=== PATIENT | female | born 1985 | race African-American/Black ===

== ENCOUNTER → 2023-05-19 10:51 | Outpatient (BNVA) | payer OTHER, SELFPAY | PROVIDERS: PCP Physician Assistant Medical; Visit Provider Advanced Practice Midwife ==

== ENCOUNTER 2023-10-04 14:53 | Outpatient (REF) | payer OTHER, SELFPAY ==
[2023-10-07 09:29] LABS: HPV mRNA E6/E7 rflx Not Detected (Not Detected)
== END 2023-10-04 14:54 | disposition home or self-care (01) ==
LOC: HO.LNP 14:53
PROVIDERS: PCP Physician Assistant Medical; Visit Provider Advanced Practice Midwife
DX: Z01.419 Encounter for gynecological examination (general) (routine) without abnormal findings (principal); Z11.51 Encounter for screening for human papillomavirus (HPV)
CPT/HCPCS: 87624; 88142

== ENCOUNTER 2023-10-04 14:53 | Outpatient (AMB) | payer OTHER, SELFPAY ==
--- OUTSIDE RECORDS SUMMARY | 2023-10-04 14:55 | XMS_ITS | Continuity of Care Document ---
Author Name Unknown Organization [facility] ter Address [address] [place] [address]- Care Team Providers Care Cutter Aluminum Sheet Name Role Phone Hasmukh BARRIOS, Lavell Aleman Primary Care Physician [place] [facility] [place]28[place]23 - 05/28/[address] [address]- Encounter Diagnosis Throat discomfort(Final) - 05/28/23 Discharge Disposition: A-D/C Home Attending Physician: Shara Soliz MD Admitting Physician: Shara Soliz MD Referring Physician: Not on Staff, Referring MD Allergies, Adverse Reactions, Alerts No Known Allergies Immunizations Given and Recorded Vaccine Date Status Refusal Reason Typhoid Vaccine, Inactivated 09/11/19 Given Hepatitis A Adult Vaccine 09/11/19 Given Hepatitis A Adult Vaccine 1 02/17/09 Given tetanus/diphtheria/pertussis, acel(Tdap) 01/22/11 Given Typhim (oldterm) 02/17/09 Given Meningococcal Polysaccharide Vaccine 2 02/17/09 Gi ollie Poliovirus Vaccine, Inactivated 02/17/09 Given 1Admin Note: hep A #1 2Admin Note: menomune Medications Azithromycin 3 Day Dose Pack 500 mg oral tablet 1 tablet = 500 mg, By Mouth, Daily, for severe diarrhea with travel., # 3 tablet, 0 Refills, Maintenance, 09/11/19 14:25:00 EST, Tablet, [id number] Start Date: 09/11/19 Status: Ordered Ferrous Sulfate EC Refills 0, Maintenance, 09/11/19 14:24:00 EST Start Date: 09/11/19 Status: Ordered Malarone 250 mg-100 mg oral tablet 1 tablet, By Mouth, Daily, must be taken with food. Start 1 day before entering malarious area and continue for 7 days after return, # 110 tablet, 0 Refills, Maintenance, 09/11/19 14:24:00 EST, [id number], 1 tablet By Mouth Daily,Instr:must b... Start Date: 09/11/19 Status: Ordered Vitamin D 59697 iu oral capsule 50,000 International_Units, 1, capsule, By Mouth, Daily, Refills 0, Maintenance, 09/11/19 14:24:00 EST Start Date: 09/11/19 Status: Ordered Results Radiology Reports * Exam Date Time Procedure Performing Provider Status 05/28/23 3:[address] Soft Tissue Neck W/ Contrast Delmis Rucker; Auth (Verified) Notes: (CT Soft Tissue Neck W/ Contrast) Reason For Exam: ? Fb throat;Other: RESULT: CT Soft Tissue Neck W/ Contrast CT Soft Tissue Neck W/ Contrast INDICATION/CLINICAL QUESTION: 38-year-old female with sore throat. Managing own secretions. No acute distress noted.; Reason: Other:; ? Feb throat; TECHNIQUE: Spiral CT neck with IV contrast formatted in 3 planes. 100 cc of Omnipaque 300 was administered intravenously. Weight-based protocol using automatic tube modulation was used to optimize exposure parameters. CTDIvol Body: 8.40 mGy, DLP Body: 242 mGy*cm. COMPARISON: None. FINDINGS: Loss Prevention Auditor View Findings, Lines and Tubes: None. Intracranial structures: Visualized portions are unremarkable. Orbits: Visualized portions are unremarkable. Paranasal sinuses and mastoids: Visualized portions are clear. Mucosal surfaces: Mucosal surfaces appear normal and symmetric, including the pharynx, larynx, and visualized portions of the upper trachea and esophagus. Moderate opaque foreign body. Superficial and deep neck spaces: No mass, fluid collection, or inflammatory change. Cervical lymph nodes: No enlarged lymph nodes. Increased number of normal-sized lymph nodes probably reactive. Salivary glands: The parotid glands and submandibular glands are normal. Thyroid gland: Normal CT appearance Vascular structures: Unremarkable. Upper chest: The upper lungs are clear. Azygous fissure noted. The upper mediastinum is unremarkable. Bones and teeth: No acute abnormalities. IMPRESSION: No evidence of radiopaque foreign body. No adenopathy or abscess. Thank you for allowing me to participate in the care of this patient. WSN: [id number] Ordering Physician: Dwight Rahman Dictated By: Gregorio Gomez MD Dictated Date/Time: 05/28/23 4:47 pm Reviewed By: Gregorio Gomez MD Signed By: Gregorio Gomez MD Signed Date/Time: 05/28/23 4:47 pm Transcribed By: COY Transcribed Date/Time: 05/28/23 4:34 pm Vital Signs Most recent to oldest [Reference Range]: 1 2 3 Height 168 cm (05/28/23 5:12 PM) 168 cm (05/28/23 1:21 PM) 168 cm (05/28/23 1:01 PM) Weight 73 kg (05/28/23 5:12 PM) 73 kg (05/28/23 1:21 PM) Oxygen Saturation [94-100 %] 99 % (05/28/23 5:13 PM) 100 % (05/28/23 5:12 PM) 100 % (05/28/23 2:59 PM) Pulse Rate [55-90 bpm] 79 bpm (05/28/23 5:13 PM) 77 bpm (05/28/23 5:12 PM) 74 bpm (05/28/23 2:59 PM) Body Mass Index [18.5-24.99 kg/m2] 25.86 kg/m2 *H* (05/28/23 5:12 PM) Blood Pressure [90-138/55-84 mm Hg] 114/64mm Hg (05/28/23 5:13 PM) 110/71mm Hg (05/28/23 5:12 PM) 103/64mm Hg (05/28/23 2:59 PM) Respiratory Rate [16-30 br/min] 20 br/min (05/28/23 5:13 PM) 16 br/min (05/28/23 5:12 PM) 14 br/min *L* (05/28/23 2:59 PM) Temperature [96.8-100.4 DegF] 98.2 DegF (05/28/23 5:12 PM) 98.2 DegF (05/28/23 1:01 PM) Mode of Delivery (Oxygen) Room air (05/28/23 5:12 PM) Room air (05/28/23 2:59 PM) Room air (05/28/23 1:01 PM) Blood pressure sites Arm, right (05/28/23 5:13 PM) Arm, right (05/28/23 5:12 PM) Arm, left (05/28/23 2:59 PM) Temperature Route Oral (05/28/23 5:12 PM) Oral (05/28/23 1:01 PM) Dry Weight 73 kg (05/28/23 5:12 PM) 73 kg (05/28/23 1:21 PM) 73 kg (05/28/23 1:01 PM) Dry Weight Obtained Via Patient/family s tated (05/28/23 1:01 PM) Patient Care team information Care Team Personnel Name: Hasmukh BARRIOS, Lavell Aleman Position: [facility] Physician - Primary Care Member Role: PCP Address: Address: [address] [place] [address], [address] [place] [address]- Name: Chantal Corrales RN Position: [facility] OB RN Member Role: Primary Care Nurse Name: Thien Dominguez DO Position: [facility] Resident Member Role: ED Attending Physician Address: Address: [address] [place] [id number]- Name: Snehal Li RN Position: [facility] ED RN W/OE and Tasks Member Role: Patient Care Provider Name: Heydi BARRIOS, Shara Elliott Position: [facility] Resident Member Role: Admitting Physician Address: Address: [address] [place] [id number]- Name: Jose Luis Downs Position: [facility] ED TA [facility] Member Role: Line Service Technician Name: Vianca Patterson NP Position: [facility] Associate Professional Member Role: ED Physician [employer] Address: Address: [address] [place] [id number]- Care Team Related Persons Name: KARON VALDOVINOS Name: RANJAN TOMPKINS Address: home [address] [place] [address]
[2023-10-04 14:56] VITALS: BP 124/76; BMI 27.1
--- NOTE | 2023-10-04 14:56 | MHC.OFFVIS ---
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 Doing well with no concerns. She tries to eat healthy, she admits to little exercise due to her depression. Regular monthly menses, happy with her ParaGard inserted 2016. Currently is sexually active. She denies vaginal itching and irritation. STI screening offered; she declines. Denies family history of breast, ovarian or colon cancer. Last pap smear unknown, negative per pt. [facility] Medical History Depression Social History (Updated 10/04/23 @ 15:29 by Joan Michael CNM) Household Members: Spouse and Children Female Reproductive History Menstrual Duration of menses: 6-7 days control method: none Total pregnancies: 4 Full term: 4 Number of Living Children: 4 Review of Systems Const All systems reviewed & are unremarkable except as noted in HPI and below Reports as per HPI Eyes Reports no additional complaints ENT Reports no additional complaints Card Reports no additional complaints Resp Reports no additional complaints GI Reports as per HPI and Reports no additional complaints Reports as per HPI Musc Reports no additional complaints Skin/Breast Reports as per HPI Neuro Reports no additional complaints Psych Reports no additional complaints Endo Reports no additional complaints Tha/Lymph Reports no additional complaints Aller/Immun Reports no additional complaints Physical Exam Vital Signs: Last Vital Signs BP 124/76 10/04/23 14:56 BMI result Body Mass Index 27.1 Const General: cooperative, healthy appearing, no acute distress, well developed and alert Orientation/consciousness: patient oriented x3 HEENT Head: Yes normal to inspection Eyes General: appearance normal, both eyes and all related structures Neck Neck: Yes normal visual inspection Thyroid: Thyroid normal Chest Chest palpation & inspection: normal inspection of the chest and other (no puckering, dimpling, peau de orange, retraction, discharge, masses) Breast/axilla inspection: normal inspection of the breasts Breast/axilla palpation: normal palpation of the breasts Resp Effort & Inspection: normal respiratory effort GI Inspection: Yes normal to inspection Palpation (GI): Soft to palpation Rectal Exam - Female: deferred General: Yes bladder normal to palpation External Female Exam: normal external appearance and normal appearance of the urethra Speculum Exam - Vagina: normal appearance of the vagina, normal palpation and normal vaginal discharge Speculum Exam - Cervix: normal appearance of the cervix, normal palpation and Other cervical findings present (IUD strings normal, bled slightly with pap) Bimanual exam- vagina & uterus: normal bimanual exam, normal palpation, uterine size normal, bladder normal to palpation, normal palpation and non-tender Bimanual Exam- Adnexa, other: no masses Skin General skin exam: no rashes or lesions noted Rashes: no rashes Neuro General: patient oriented x3 Cognition (Neuro): normal cognition Extrem General: Yes normal to inspection Psych Attitude: cooperative Thought process: Normal thought process present Assessment & Plan Assessment & Plan (1) Encounter for well woman exam with routine gynecological exam: Code(s): Z01.419 - Encounter for gynecological examination (general) (routine) without abnormal findings Plan Discussed: Current recommendations for pap smears per ASCCP guidelines. Breast awareness and periodic breast exams. Mammogram after her 39th birthday. Order placed. Maintain a healthy lifestyle including a well balanced diet and routine exercise. Monitor menstrual cycles, report any unscheduled bleeding, bleeding episodes <21 days apart or heavy/prolonged menstrual bleeding. Call the office for a follow up for any concerns. All of her questions and concerns were addressed to the best of my ability. RTO in one year for annual obstetrics gynecology physician examination. This note is constructed using voice recognition software. While every effort has been made to ensure accuracy, pediatric orthodontist errors may have been included. Orders: Orders Pap Smear Today Z12.4 - Encounter for screening for malignant neoplasm of cervix MM tomosynthesis screening BI 05/20/24 Z12.31 - Encounter for screening mammogram for malignant neoplasm of breast Coding Level of Care Code New Pt Prev Care 18-39yr([address] Diagnoses Encounter for well woman exam with routine gynecological exam Z01.419
== END 2023-10-04 15:37 | disposition home or self-care (01) ==
LOC: HO.HWS 14:53
PROVIDERS: PCP Physician Assistant Medical; Visit Provider Advanced Practice Midwife
DX: Z01.419 Encounter for gynecological examination (general) (routine) without abnormal findings (principal)
CPT/HCPCS: 99385

== ENCOUNTER 2024-01-26 15:45 | Outpatient (AMB) | payer OTHER, SELFPAY ==
[2024-01-26 15:48] VITALS: BP 120/82; BMI 29.9
--- NOTE | 2024-01-26 15:48 | MHC.OFFVIS ---
Vital Signs 01/26/24 15:48 Height 5 ft 6 in Weight 185 lb BMI 29.9 BP 120/82 Intake Visit Reasons: menses concerns Business Account Executive Required: No Information Interpreted: non-clinical & clinical Level Vial Sealer: Level Vial Sealer Present Accompanied by: Self / Same As Patient Allergies No Known Allergies Allergy (Verified 01/26/24 15:54) Is last menstrual period known: Yes Last menstrual period: 01/22/24 HPI Comments Details: Patient is currently a ParaGard user she does have regular cycles monthly lasting 6 days. [place]/ areas that prohibit women to enter if they are bleeding. She is requesting control so that she does not get her period while traveling on February 24 for a month out of the country. She denies any contraindications to control such as: migraines with aura, history of DVT or pulmonary emboli, high blood pressure, liver disease, thrombolic disorders, Lupus, +ALEXUS, breast cancer, or smoking. She reports using control pills in the past for same reason and had some breakthrough bleeding in the 1st month and stopped. [facility] Medical History Depression Social History (Updated 10/04/23 @ 15:29 by Joan Michael CNM) Household Members: Spouse and Children Female Reproductive History Menstrual Date of last menstrual period: 01/22/24 Review of Systems Const All systems reviewed & are unremarkable except as noted in HPI and below Endo Reports no additional complaints Physical Exam Const General: cooperative, healthy appearing and no acute distress Psych Appearance: well kempt Attitude: cooperative Thought process: Normal thought process present Assessment & Plan Assessment & Plan (1) BCP ( control pills) initiation: Code(s): Z30.011 - Encounter for initial prescription of contraceptive pills Plan Control Counseling Use and side effects of control: Instructed to start the pill within the first 5 days of the menstrual period. Recommended to take pill at same time every day and with food to prevent stomach upset. Switch to bedtime intake with food if still experiencing nausea. Consider setting the cell phone for alerts as a reminder to take the pill at the same time. Take the dose as soon as possible, and take your regular pill on time. If you miss the pill often, then consider another option of control. Instructed patient to take for at least 3 months the body is acclimated to it. Most side effects go away with time in the first three months. There is no guarantee she does not have breakthrough bleeding within the 1st pack which is an extended pack, this is a frequent occurrence in initiating control. Mirena booklet given, encouraged to read and think about changing her IUD to a Mirena to not have menstrual bleeding therefore eliminate the need to go intermittently on and off OCPs while traveling. Keep mammogram appointment as scheduled in April. Warnings: go to ED if and loss of vision/blindness, severe headache, chest pain or difficulty breathing, severe abdominal pain, or any pain or swelling in an extremity. Advised during her travel on flight or car to get up and stretch and exercise to move her extremities to prevent prolonged episodes of sitting to prevent any risk for development of deep vein thrombosis. Exercises could also include stretches, stomping, ambulating, ankle rolls. Return in 3 months for pill check, or sooner if any concerns. Patient may opt to just discontinue after her trip in February and will not need a pill check at that time. All of her questions and concerns were addressed to the best of my ability and shared decision making. She is agreeable to plan of care. Medications: New levonorgestrel-ethinyl estrad 0.15 mg-30 mcg (91) ([place]) 1 tab PO DAILY 91 ea 0RF Coding Level of Care Code Est Pt Level 3 ([address]) Diagnoses BCP ( control pills) initiation Z30.011
== END 2024-01-26 16:14 | disposition home or self-care (01) ==
LOC: HO.HWS 15:45
PROVIDERS: PCP Physician Assistant Medical; Visit Provider Advanced Practice Midwife
DX: Z30.011 Encounter for initial prescription of contraceptive pills (principal)
CPT/HCPCS: 99213

== ENCOUNTER → 2024-01-26 15:45 | Outpatient (BNVA) | payer OTHER, SELFPAY | PROVIDERS: PCP Physician Assistant Medical; Visit Provider Advanced Practice Midwife ==

== ENCOUNTER 2024-06-11 13:33 | Outpatient (REF) | payer OTHER, SELFPAY ==
--- NOTE | ~2024-06-11 | MM_ITS ---
EXAMINATION: MM SCREENING DIGITAL BREAST TOMOSYNTHESIS, BILATERAL CLINICAL INFORMATION: Screening. Asymptomatic. COMPARISON: Mammography: Comparison is made with available priors TECHNIQUE: Digital breast mammography with tomosynthesis is performed in both the craniocaudal and mediolateral oblique views along with computer-aided detection (CAD). FINDINGS: There are scattered areas of fibroglandular density (ACR BI-RADS breast composition Category b). There are no significant masses, abnormal calcifications, or other abnormalities. MM/MM tomosynthesis screening BI IMPRESSION: No mammographic evidence of malignancy. ASSESSMENT: BI-RADS BI-RADS 1 - Negative RECOMMENDATION: Routine annual mammography screening. 1 year F/U This examination should not preclude the clinical evaluation of a suspicious palpable abnormality. This patient's information was entered into a reminder system with a target due date for their next mammogram. Electronically signed by: Rosemary Keith DO 06/25/2024 10:31 AM EDT
== END 2024-06-11 13:34 | disposition home or self-care (01) ==
LOC: HO.MAMMO 13:33
PROVIDERS: PCP Internal Medicine; Visit Provider Advanced Practice Midwife
DX: Z12.31 Encounter for screening mammogram for malignant neoplasm of breast (principal)
CPT/HCPCS: 77063; 77067

== ENCOUNTER → 2024-06-11 13:45 | Outpatient (BNV) | payer OTHER, SELFPAY | PROVIDERS: PCP Internal Medicine; Visit Provider Internal Medicine | DX: Z12.31 Encounter for screening mammogram for malignant neoplasm of breast (principal) | CPT/HCPCS: 77063; 77067 ==

== ENCOUNTER 2025-06-18 10:03 | Outpatient (AMB) | payer OTHER, SELFPAY ==
--- NOTE | 2025-06-18 10:09 | A.OFFVIS_ITS ---
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 Resource Recovery Specialist concerns: none. Regular monthly menses. ParaGard inserted in 2016. Currently is sexually active. She denies vaginal itching or irritation. STI screening offered; she declines. She tries to eat healthy and stays active with exercise-walking. Denies family history of breast, ovarian or colon cancer. Last pap smear 2023, negative. Mammogram: 2023. [facility] Medical History (Updated 06/18/25 @ 10:35 by Joan Michael CNM) IUD (intrauterine device) in place Depression Social History Household Members: Spouse and Children Female Reproductive History Menstrual Duration of menses: 3-5 days Date of last menstrual period: 06/09/25 control method: copper IUCD (Paraguard ) Total pregnancies: 4 Full term: 4 Number of Living Children: 4 Date of last pap smear: 10/04/23 (negativepap smear, negative hpv ) Date of Mammogram: 06/11/24 (bi rad 1) Review of Systems Const All systems reviewed & are unremarkable except as noted in HPI and below Reports as per HPI Eyes Reports no additional complaints ENT Reports no additional complaints Card Reports no additional complaints Resp Reports no additional complaints GI Reports as per HPI and Reports no additional complaints Reports as per HPI Musc Reports no additional complaints Skin/Breast Reports as per HPI Neuro Reports no additional complaints Psych Reports no additional complaints Endo Reports no additional complaints Tha/Lymph Reports no additional complaints Aller/Immun Reports no additional complaints Physical Exam Const General: cooperative, healthy appearing, no acute distress, well developed and alert Orientation/consciousness: patient oriented x3 HEENT Head: Yes normal to inspection Eyes General: appearance normal, both eyes and all related structures Neck Neck: Yes normal visual inspection Thyroid: Thyroid normal Chest Chest palpation & inspection: normal inspection of the chest and other (no puckering, dimpling, peau de orange, retraction, discharge, masses) Breast/axilla inspection: normal inspection of the breasts Breast/axilla palpation: normal palpation of the breasts Resp Effort & Inspection: normal respiratory effort GI Inspection: Yes normal to inspection Palpation (GI): Soft to palpation Rectal Exam - Female: deferred General: Yes bladder normal to palpation External Female Exam: normal external appearance and normal appearance of the urethra Speculum Exam - Vagina: normal appearance of the vagina, normal palpation and normal vaginal discharge Speculum Exam - Cervix: normal palpation and Other cervical findings present (IUD strings at the os) Bimanual exam- vagina & uterus: normal bimanual exam, normal palpation, uterine size normal, bladder normal to palpation, normal palpation and non-tender Bimanual Exam- Adnexa, other: no masses Skin General skin exam: no rashes or lesions noted Rashes: no rashes Neuro General: patient oriented x3 Cognition (Neuro): normal cognition Extrem General: Yes normal to inspection Psych Attitude: cooperative Thought process: Normal thought process present Assessment & Plan Assessment & Plan (1) Encounter for well woman exam with routine gynecological exam: Code(s): Z01.419 - Encounter for gynecological examination (general) (routine) without abnormal findings Category: Medical Plan Discussed: Current recommendations for pap smears per ASCCP guidelines. Breast awareness and periodic breast exams. Mammogram yearly. Maintain a healthy lifestyle including a well balanced diet and routine exercise. Reviewed when IUD we will need to be exchange at 10 years. Patient verbalizes understanding and agrees to the plan of care. She was given opportunity to ask questions and all questions were answered to the best of my ability. RTO in one year for annual traveling repair accountant examination. This note is constructed using voice recognition software. While every effort has been made to ensure accuracy, derrick boat leverman errors may have been included. Orders: Orders MM tomosynthesis screening BI Today Z12.31 - Encounter for screening mammogram for malignant neoplasm of breast Coding Level of Care Code Est Pt Prev Care 40-64y([address]) Diagnoses Encounter for well woman exam with routine gynecological exam Z01.419
[2025-06-18 10:18] VITALS: BP 110/68; BMI 30.7
--- OUTSIDE RECORDS SUMMARY | 2025-06-18 12:18 | XMS_ITS | Clinical Summary ---
Author Organization [facility] Address [address] [place] [address] Care Team Providers Care Emotional Support Teacher Name Role Phone Jihan Suarez [facility] Primary Care Provider [phone] Source Comments PLEASE NOTE, if this patient is a minor, it may be UNLAWFUL to discuss sensitive information that is contained in these records (such as FAMILY PLANNING, MENTAL HEALTH or SUBSTANCE ABUSE) with the minor patient's parent or other person without the patient's specific authorization.[facility] Allergies No known active allergies Medications sertraline (ZOLOFT) 50 mg tabletIndication s:Depression, unspecified depression type Take 1 Tab by mouth once daily 30 Tab 2 02/15/2019 Active ibuprofen 600 mg tabletIndication s:Costochondriti s Take 1 Tab by mouth 4 (four) times daily as needed for pain 60 Tab 09/17/2019 Active Active Problems Problem Noted Date Diagnosed Date Immune to varicella 01/17/2019 Overview (01/17/2019): Date:12/29/2018 VARICELLA IGG ANTIBODY POSITIVE POSITIVE VARZ QUANT >165 INDEX 1113.0 Comment: >165 Index is considered to be consistent with Immunity. Immunizations Immunization Administration Dates Next Due Varicella (Varivax), Live Vaccine 01/01/2019 Social History Tobacco Use Types Packs/Day Years Used Date Smoking Tobacco: Never Smokeless Tobacco: Never Alcohol Use Standard Drinks/Week Comments No 0 (1 standard drink = 0.6 oz pur e alcohol) Social Connections Answer Date Recorded Connectedness 0 06/15/2024 Financial Resource Strain Answer Date R ecorded Financial Resource Strain 0 2018 Stress Answer Date Recorded Stress 0 05/20/2019 Physical Activity Answer Date Recorded Physical Activity 0 05/20/2019 Food Insecurity Answer Date Recorded Food 0 06/20/2024 Transportation Needs Answer Date Record ed Transportation 0 05/20/2019 Housing Stability Answer Date Recorded Housing 0 05/20/2019 Safety and Environment Answer Date Raj rded Safety 0 05/20/2019 Utilities Answer Date Recorded Utilities 0 05/20/2019 Employment Answer Date Recorded Stress 0 06/15/2024 Comments No Sex and Gender Information Value Date Recorded Sex Assigned at Female 01/16/2019 5:03 AM PDT Legal Sex Female 12:58 PM PDT Gender Identity Female 01/16/2019 5:03 AM PDT Sexual Orientation Straight 01/16/2019 5: 03 AM PDT Last Filed Vital Signs Vital Sign Reading Time Taken Comments Blood Pressure 109/61 09/17/2019 10:47 AM EST Pulse 77 09/17/2019 10:47 AM EST Temperature 36.8 C (98.3 F) 09/17/2019 10:47 AM EST Respiratory Rate 16 09/17/2019 10:47 AM EST Oxygen Saturation - - Inhaled Oxygen Concentration - - Weight 78.5 kg (173 lb) 09/17/2019 10:47 AM EST Height 165.1 cm (5' 5 ) 09/17/2019 10:47 AM EST Body Mass Index 28.79 09/17/2019 10:47 AM EST Plan of Treatment Health Maintenance Due Date Last Done Comments HPV Screening 1984 Hepatitis C Screening 1984 Pap + HPV 1984 Tobacco Screening 1984 Relationship Safety Screening/Counseling 1999 Imm-DTaP/Tdap/Td (1 - Tdap) 2003 Imm-Hepatitis B (1 of 3 - 19 + 3-dose series) 2003 Cervical Cancer Screening 2005 Pap Smear 2005 Imm-HPV (1 - 3-dose SCDM series) 2011 Anxiety Screening 12/26/2019 12/25/2018 Diabetes Screening 01/02/2020 01/01/2019, 01/01/2019 Hypertension Screening (#1) 09/16/2020 Lipid Screening 01/02/2024 01/01/2019 Breast Cancer Screening (Mammogram) 2024 Alcohol and Drug Screen 09/25/2024 01/01/2019 Depression Annual Screen 09/25/2024 01/02/2019 [id number] ( season) 2025 Imm-Influenza (#1) 2025 HIV Screening Completed 01/01/2019 Cervical Ablation/Cold-Knife Conization Discontinued Cervical Cryotherapy Discontinued Colposcopy Discontinued Endometrial Biopsy Discontinued Excision/Leep Discontinued HPV Genotyping Discontinued Vaginal Pap Discontinued Vulvoscopy Discontinued Procedures Procedure Name Priority Date/Time Associated Diagnosis Comments ANTIBODY HIV-1&HIV-2 SINGLE RESULT Routine 01/01/2019 3:52 PM EDT Physical exam COMPREHENSIVE METABOLIC PANEL Routine 01/01/2019 3:52 PM EDT Physical exam LIPID PANEL Routine 01/01/2019 3:52 PM EDT Physical exam from Last 3 Months or Most Recently Relevant to Health Maintenance Results * HIV-1 & HIV-2 ANTIBODIES (01/01/2019 3:52 PM EDT) [facility] Signature HIV 1 AND 2 ANTIBODY SCREEN NEGATIVE NEGATIVE [facility] Comment: This assay is a 4th generation assay allowing for earlier detection of HIV infection by detecting the presence of the HIV-1 p24 antigen as well as the traditional antibodies to HIV type 1 (including group O) and type 2. Use of a 4th generation assay is the current CDC recommendation for HIV screening. Blood specimen (specimen) Blood / Unknown 01/01/2019 3:52 PM EDT 01/01/2019 4:[address] [facility] - 01/01/2019 8:19 PM EDT [employer], [place] [address] Label Folder - Tammi Welch MD PT ID [id number] ORD# [id number] us Elizabeth Quinones NP LAB - [place] [address], * LIPID PANEL (01/01/2019 3:52 PM EDT) CHOLESTEROL 136 0 - 200 mg/dL [facility] TRIGLYCERIDES 110 0 - 150 mg/dL [facility] HDL CHOLESTEROL 51 >40 mg/dL [facility] LDL CALCULATED 63 0 - 100 mg/dL [facility] TC-HDLC RATIO 2.7 0 - 4.4 mg/dL [facility] Blood specimen (specimen) Blood / Unknown 01/01/2019 3:52 PM EDT 01/01/2019 4:[address] [facility] - 01/01/2019 7:12 PM EDT [facility] [employer], [place] [address] Label Folder - Tammi Welch MD PT ID [id number] ORD# [id number] Elizabeth Quinones FRONT END WEB DEVELOPER LAB - BLOOD DRAW [place] [address], * (ABNORMAL) COMPRE METAB PANEL (CMP) (01/01/2019 3:52 PM EDT) GLUCOSE 102(H) 70 - 100 mg/dL [facility] Comment:Reference range appl icable to fasting specimens only BUN 10 5 - 25 mg/dL [facility] CREAT 0.81 0.5 - 1.1 mg/dL [facility] GLOMERULAR FILTRATION RATE > 60 [facility] Comment: If patient is -Mexican, multiply result by 1.21 Chronic Kidney Disease: < 60 ml/min/1.73 square meters Kidney Failure: < 15 ml/min/1.73 square meters SODIUM 137 133 - 145 mmol/L [facility] POTASSIUM 3.9 3.5 - 5.5 mmol/L [facility] CHLORIDE 105 96 - 110 mmol/L [facility] CO2 27 21 - 32 mmol/L [facility] ANION GAP 5 3 - 11 [facility] CALCIUM 8.8 8.5 - 10.5 mg/dL [facility] TOTAL PROTEIN 8.2(H) 6.0 - 8.0 G/dL [facility] ALBUMIN 3.8 3.2 - 5.0 G/dL [facility] BILI, TOTAL 0.2 0.0 - 1.4 mg/dL [facility] SGOT 10 10 - 42 U/L [facility] SGPT 21 10 - 60 U/L [facility] ALK PHOS 88 42 - 121 U/L [facility] Blood specimen (specimen) Blood / Unknown 01/01/2019 3:52 PM EDT 01/01/2019 4:[address] [facility] - 01/01/2019 7:12 PM EDT [facility], [place] [address] Label Folder - Tammi Welch MD PT ID [id number] ORD# [id number] Elizabeth Quinones NP LAB - [place] [address], from Last 3 Months or Most Recently Relevant to Health Maintenance Insurance [facility]) Member Subscriber Plan / Payer (Ef fective 2019-Present) Name:Kaz Alexandre Relation to Subscriber:Self Name:Kaz Alexandre Payer ID:[id number] Group ID:Not on file Type:Indemnity Address: [address] [place] [id number] [place] MEDICA[place] Care Teams Emotional Support Teacher Relationship Specialty Start Date End Date Jihan Suarez FNP [address] [place] [id number] PCP - General Internal Medicine 06/08/19
== END 2025-06-18 10:47 | disposition home or self-care (01) ==
LOC: HO.HWS 10:03
PROVIDERS: PCP Internal Medicine; Visit Provider Advanced Practice Midwife
DX: Z01.419 Encounter for gynecological examination (general) (routine) without abnormal findings (principal)
CPT/HCPCS: 99396; 99459

== ENCOUNTER 2025-07-13 12:20 | Emergency (ER) | payer OTHER, SELFPAY ==
--- NOTE | 2025-07-13 12:22 | ED_ITS ---
HPI - General Adult General Chief complaint: General Medical Stated complaint: Back pain Time Seen by Provider: 07/13/25 16:06 Source: patient Mode of arrival: ambulatory Limitations: no limitations History of Present Illness ED Provider: PAM PETTIT PA-C HPI narrative: 50-year-old female presents to the ED today for evaluation of epigastric pain x1 week. Patient reports burning sensation that radiates up to her throat. Symptoms seem to be in worse with eating. She has trialed an bvbs-rvc-oirhefd acid reflux medication/ Tums however has not noticed any requirement. Denies EtOH consumption. Admits to regular caffeine consumption, drinking teas. Also endorses noticing blood in her urine and on the toilet paper after urinating both yesterday and today. She does report having her menses on 07/08/25 however does not believe she is still on her period. Denies vaginal bleeding/discharge. Denies dysuria, urinary frequency, urgency, flank pain. Denies fever, chills. Denies constipation, diarrhea, nausea or vomiting. Denies chest pain, sob. Related Data Home Medications ?Medication ?Instructions ?Recorded ?Confirmed copper 380 square mm intrauterine intrauterine 4 device (ParaGard T 380A) Previous Rx's ?Medication ?Instructions ?Recorded nitrofurantoin 100 mg PO BID 5 days #10 cap s 07/13/25 monohydrate/macrocrystals 100 mg capsule (Macrobid) pantoprazole 20 mg tablet,delayed 20 mg PO DAILY 30 da ys #30 tabs 07/13/25 release Allergies Allergy/AdvReac Type Severity Reaction Status Date / Time No Known Allergies Allergy Verified 07/13/25 12:26 Review of Systems 2 Review of Systems: Yes all other systems are reviewed and are negative [facility] Past Medical History Attestation statement: The following information was validated with the patient. Source: old records reviewed and nursing notes reviewed Medical History IUD (intrauterine device) in place Depression Social History Social History Household Members: Spouse and Children Advance Directives: No Advance Directives Information Provided: No Physical Exam ED Vital Signs: Vital Signs - 24 hr 07/13/25 12:24 07/13/25 18:38 Temperature 96.9 F 0 F L Pulse Rate 75 78 Respiratory Rate 16 16 Blood Pressure 112/59 L 108/63 Pulse Oximetry 99 99 Oxygen Delivery Method Room Air Room Air BMI result Body Mass Index 31.1 vital signs stable, afebrile General: Well appearing, in no acute distress. Skin: Warm, dry, intact. No rashes or lesions. Head: Normocephalic, atraumatic. EENT: Hearing is intact b/l. Conjunctiva clear. Sclera is anicteric. PERRLA. EOM intact. Moist mucous membranes.? Neck: Supple without LAD Cardiac: Chest wall symmetric. RRR Lungs: Normal respiratory effort without accessory muscle use. CTA bilaterally Abdomen: Soft, non-tender, non-distended. No rebound tenderness or guarding. Positive BS x4. Back: No midline spinous or paraspinal tenderness. No step off deformity. Ext: Upper and lower extremities atraumatic, without tenderness, deformity, swelling or erythema Neuro: AOx3. Normal speech. Ambulating with steady gait. Course Course Course Narrative: This is a rapid medical exam performed by Denis Phillips NP: Additional HPI, ROS, PE not included below will be deferred to primary provider. Patient is a 40y/o F presenting to the ED with complaint of burning chest pain radiating to her upper back intermittently for the past week. Worse with eating. Plan: EKG, labs Reevaluation(s) Reevaluation #1: EKG showing normal sinus rhythm, rate of 74 beats per minute, QT 374, QTC 415, no acute ischemic changes or ST elevations. CBC without leukocytosis or left shift. Microcytic anemia, no priors to compare to. Patient endorses history of iron-deficiency anemia, follows with her PCP for this. Chemistry without acute electrolyte abnormality requiring intervention. No NEDRA. Liver function WNL. Troponin undetectable. Lipase WNL. Beta quant undetectable. Urine showing moderate leukocyte esterase, 11-20 WBCs, 4+ urine bacteria. She does have 11-20 squamous epithelial cells, possibly contamination, however will treat with a 5 day course of Macrobid. Patient treated with GI cocktail in the ED with good effect. Concern for GERD versus gastritis. Will trial pantoprazole. She has follow up with PCP in 1 week. Advised to keep this appointment, may require an upper endoscopy for further evaluation. I do not feel as is warranted at this time. Patient has remained stable throughout ED visit today. Discussed worrisome signs and symptoms and when to return to the ED. All questions answered at this time. Patient is agreeable with disposition and stable for discharge. Medications Administered Discontinued Medications Generic Name Dose Route Start Last Admin Trade Name Freq PRN Reason Stop Dose Admin Al Hydroxide/Mg Hydroxide 30 ml 07/13/25 16:22 07/13/25 16:40 Magnesium Hydrox/Alum Hydrox 30 Ml Oral.Susp PO 07/13/25 16:23 30 ml ONCE ONE Administration Belladonna Alkaloids/Phenobarbital 10 ml 07/13/25 16:22 07/13/25 16:40 Phenobarb/Hyoscy/Atropine/Scop 10 Ml Elixir PO 07/13/25 16:23 10 ml ONCE ONE Administration Ondansetron HCl 4 mg 07/13/25 16:22 07/13/25 16:41 Ondansetron Odt 4 Mg Tab.Rapdis TRANSLINGU 07/13/25 16:23 4 mg ONCE ONE Administration Medical Decision Making Medical Decision Making [facility] Narrative: 50-year-old female presents to the ED today for evaluation of epigastric pain x1 week. Vital signs stable. Afebrile. She is well-appearing and in no acute distress. Exam is benign. Differential diagnosis includes anemia, electrolyte abnormality, GERD, gastritis, PUD. Less likely biliary colic, cholelithiasis, choledocholithiasis, cholangitis, pancreatitis. Unlikely ACS, PE, pneumonia, dissection. Plan for labs, EKG, GI cocktail and re-evaluation. Differential Diagnosis Differential Diagnoses: The differential diagnosis associated with the presentation includes As above Admission/Observation Not indicated Lab Data [facility] Lab Attestation statement: I reviewed the patient's lab results. As above 07/13/25 12:38 07/13/25 12:38 Labs: Lab Results 07/13/25 07/13/25 Range/Units 12:38 17:48 WBC 8.1 (4.8-10.8) X10*3/uL RBC 5.16 (4.20-5.50) X10*6/uL Hgb 10.7 L (12.0-16.0) g/dl Hct 35.3 L (37.0-47.0) % MCV 68.4 L (80.0-98.0) fL MCH 20.7 L (27.0-33.0) pg MCHC 30.3 L (31.0-35.0) g/dl RDW 15.3 (11.0-16.0) % Plt Count 470 H (160-400) X10*3/uL MPV 8.4 L (9.4-12.3) fL Immature Gran % (Auto) 0.2 (0.0-0.4) % Neut % (Auto) 56.3 (45-73) % Lymph % (Auto) 37.6 (20-40) % [place] % (Auto) 3.3 (2-11) % Eos % (Auto) 1.9 (0-4) % Baso % (Auto) 0.7 (0-2) % Lymph # (Auto) 3.0 (1.2-4.9) X10*3/uL [place] # (Auto) 0.3 (0.1-1.2) X10*3/uL Eos # (Auto) 0.2 (0.0-0.4) X10*3/uL Baso # (Auto) 0.1 (0.0-0.2) X10*3/uL Abs Immat Gran (auto) 0.02 (0.00-0.03) X10*3/uL Absolute Neuts (auto) 4.5 (2.0-8.3) x10*3/uL Absolute Nucleated RBC 0.000 (0.0-0.012) X10*3/uL Nucleated RBC % (auto) 0.0 (0.0-0.2) /100WBC PT 12.8 H (10.9-12.4) SEC INR 1.1 (0.9-1.1) Sodium 136 (135-145) mmol/L Potassium 4.1 (3.3-5.1) mmol/L Chloride 105 (96-108) mmol/L Carbon Dioxide 24 (22-29) mmol/L Anion Gap 11 L (12-20) BUN 9 (9-16) mg/dL Creatinine 0.76 (0.5-1.4) mg/dL Estim Creat Clear Calc 108.5 Estimated GFR > 60 Random Glucose 97 (60-115) mg/dL Calcium 9.2 (8.4-10.2) mg/dL Total Bilirubin 0.3 (0.0-1.0) mg/dL AST 16 (5-31) U/L ALT 24 (0-31) U/L Alkaline Phosphatase 101 (39-117) U/L Troponin I High Sens < 2.7 (<3.5-17.0) ng/L Total Protein 7.9 (6.5-8.0) g/dL Albumin 4.2 (3.5-5.0) g/dL Lipase 25 (8-78) U/L Beta HCG, Quant < 2 mIU/mL Urine Color Yellow Urine Appearance Clear Urine pH 6.5 (5.0-9.0) Ur Specific Dolores 1.015 (1.005-1.025) Urine Protein Negative (Neg-Trace) mg/dL Urine Glucose (UA) Negative (Negative) mg/dL Urine Ketones Trace (Negative) mg/dL Urine Blood Negative (Negative) Urine Nitrite Negative (Negative) Ur Leukocyte Esterase Moderate (2+) H (Negative) Urine RBC 0-2 (0-2) /HPF Urine WBC 11-20 H (0-5) /HPF Ur Squamous Epith Cells 11-20 (0-2) /HPF Urine Bacteria 4+ (None Seen) Hyaline Casts 0-2 (0-2) /LPF Independent Interpretation I performed an independent interpretation of an: EKG Interpretation: EKG showing normal sinus rhythm, no acute ischemic changes or ST elevations Radiology Impression Discussion of test interpretation with radiology: I have reviewed the radiologist's reading. Radiologist Impression: Procedure(s): ECG 12 lead EKG Accession Number(s): [id number] cc: ~ Reason for Exam: chest pain Test Reason : CP Blood Pressure : */* mmHG Vent. Rate : 74 BPM Atrial Rate : 74 BPM P-R Int : 146 ms QRS Dur : 70 ms QT Int : 374 ms P-R-T Axes : 32 26 45 degrees QTcB Int : 415 ms Normal sinus rhythm Normal ECG No previous ECGs available External Record Review External record reviewed: Inpatient record Prescription Management I considered prescription management with: Other (Pantoprazole) Social Determinants Patient?s care significantly limited by Social Determinants of Health including: Other Social Determinant of Health Critical Care Time Critical Care Time Critical Care Time: No Discharge Plan Discharge Clinical Impression: Acid reflux Patient Disposition: Home, Self-Care Instructions: GERD (Gastroesophageal Reflux Disease) (ED) Additional Instructions: Your work up today is reassuring. You have suspicion that you are suffering from acid reflux. I am starting you on pantoprazole. Take this daily. Please avoid spicy foods, alcohol, caffeine, etc.. Please see home care instructions Keep your follow up appointment with your PCP next week. They may want to order an upper endoscopy to further evaluate your symptoms. Return with any new or worsening symptoms. In the case of an emergency call 911. Prescriptions: New pantoprazole 20 mg tablet,delayed release (DR/EC) 20 mg PO DAILY 30 Days Qty: 30 0RF nitrofurantoin monohyd/m-cryst [Macrobid] 100 mg capsule 100 mg PO BID 5 Days Qty: 10 0RF Rx Instructions: must administer with a meal/food No Action ParaGard T 380A 380 square mm intrauterine device intrauterine Referrals: Kelsi Garner MD [Primary Care Provider, Medical] Interventions: ED Discharge Assessment Last Done: 07/13/25 18:38 Discharge Date/Time: 07/13/25 18:39 Print Language: Namibian
[2025-07-13 12:24] VITALS: BP 112/59; PULSE 75; RESP 16; TEMP 36.1; O2SAT 99; BMI 31.1
--- NOTE | 2025-07-13 12:25 | ECG_ITS ---
Test Reason : CP Blood Pressure : */* mmHG Vent. Rate : 74 BPM Atrial Rate : 74 BPM P-R Int : 146 ms QRS Dur : 70 ms QT Int : 374 ms P-R-T Axes : 32 26 45 degrees QTcB Int : 415 ms Normal sinus rhythm Normal ECG No previous ECGs available Referred By: Arely Phillips Electronically Signed By: PRAFUL MORENO MD
[2025-07-13 12:42] LABS: MANUAL DIFF FLAG NO
[2025-07-13 12:43] LABS: Hematocrit 35.3 % (37.0-47.0); Hemoglobin 10.7 g/dl (12.0-16.0); Imm Gran Abs Auto 0.02 X10*3/uL (0.00-0.03); Imm Gran Pct Auto 0.2 % (0.0-0.4); Lymphocytes Absolute Auto 3.0 X10*3/uL (1.2-4.9); Mean Corpuscular HGB Conc 30.3 g/dl (31.0-35.0); Mean Corpuscular Hemoglobin 20.7 pg (27.0-33.0); Mean Corpuscular Volume 68.4 fL (80.0-98.0); NRBC Abs Auto 0.000 X10*3/uL (0.0-0.012); NRBC Pct Auto 0.0 /100WBC (0.0-0.2); Platelet Count 470 X10*3/uL (160-400); Red Blood Count 5.16 X10*6/uL (4.20-5.50); White Blood Count 8.1 X10*3/uL (4.8-10.8)
[2025-07-13 12:52] LABS: INTERNATIONAL NORM RATIO 1.1 (0.9-1.1); Prothrombin Time 12.8 SEC (10.9-12.4)
[2025-07-13 13:04] LABS: Alanine Aminotransferase 24 U/L (0-31); Albumin Level 4.2 g/dL (3.5-5.0); Alkaline Phosphatase 101 U/L (39-117); Anion Gap 11 (12-20); Aspartate Amino Transferase 16 U/L (5-31); Blood Urea Nitrogen 9 mg/dL (9-16); Calcium 9.2 mg/dL (8.4-10.2); Carbon Dioxide 24 mmol/L (22-29); Chloride 105 mmol/L (96-108); Creatinine Clr Calc Pharmacy 108.5; Estimated Glomerular Filt Rate > 60; Lipase 25 U/L (8-78); Potassium 4.1 mmol/L (3.3-5.1); Sodium 136 mmol/L (135-145); Total Protein 7.9 g/dL (6.5-8.0)
[2025-07-13 13:22] LABS: Troponin-I High Sensitivity < 2.7 ng/L (<3.5-17.0)
--- OUTSIDE RECORDS SUMMARY | 2025-07-13 16:02 | XMS_ITS | Clinical Summary ---
Author Organization [facility] Address [address] [place] [address] Care Team Providers Care Marketing Representative Name Role Phone Jihan Suarez [facility] Primary Care Provider [phone] Source Comments PLEASE NOTE, if this patient [...] Due Date Last Done Comments HPV Screening (self-collect) 1984 HPV Screening 1984 Hepatitis C Screening 1984 [...] 09/25/2024 01/01/2019 Depression Annual Screen 09/25/2024 01/02/2019 [id number] ( season) 2025 Imm-Influenza (#1) 2025 HIV Screening Completed 01/01/2019 Cervical Ablation/Cold-Knife Conization Discontinued Cervical Cryotherapy Discontinued Colposcopy Discontinued Excision/Leep Discontinued HPV Genotyping Discontinued Vaginal [...] & HIV-2 ANTIBODIES (01/01/2019 3:52 PM EDT) [facility] HIV 1 AND 2 ANTIBODY SCREEN NEGATIVE NEGATIVE [facility] Comment: This assay is a 4th [...] 3:52 PM EDT 01/01/2019 4:07 PM EDT [facility] [employer] [facility] - 01/01/2019 8:19 PM EDT [employer], a member of [address] [address] Business Information Analyst - Tammi Welch MD PT ID [id number] ORD# [id number] Elizabeth Quinones NP LAB - BLOOD DRAW Final Resu lt [address] [address], * LIPID PANEL (01/01/2019 3:52 PM EDT) CHOLESTEROL 136 0 - 200 mg/dL [facility] TRIGLYCERIDES 110 0 - 150 mg/dL [facility] HDL CHOLESTEROL 51 >40 mg/dL [facility] LDL CALCULATED 63 0 - 100 mg/dL [facility] TC-HDLC RATIO 2.7 0 - 4.4 mg/dL [facility] Blood specimen (specimen) Blood / Unknown 01/01/2019 3:52 PM EDT 01/01/2019 4:07 PM EDT Narrative [facility] - 01/01/2019 7:12 PM EDT [facility] [employer], [place] [address] Business Information Analyst - Tammi Welch MD PT ID [id number] ORD# [id number] Elizabeth Quinones LOCKS TENDER LAB - BLOOD DRAW Edited Res ult [place] [address], * (ABNORMAL) COMPRE METAB PANEL (CMP) (01/01/2019 3:52 PM EDT) GLUCOSE 102(H) 70 - 100 mg/dL [facility] Comment:Reference range appl icable to fasting specimens only BUN 10 5 - 25 mg/dL [facility] CREAT 0.81 0.5 - 1.1 mg/dL [facility] GLOMERULAR FILTRATION RATE > 60 [facility] Comment: If patient is -[place]ierra Leone[place], multiply result by 1.21 Chronic Kidney Disease: < 60 ml/min/1.73 square meters Kidney Failure: < 15 ml/min/1.73 square meters SODIUM 137 133 - 145 mmol/L [facility] POTASSIUM 3.9 3.5 - 5.5 mmol/L [facility] CHLORIDE 105 96 - 110 mmol/L [facility] CO2 27 21 - 32 mmol/L [facility] ANION GAP 5 3 - 11 [facility] CALCIUM 8.8 8.5 - 10.5 mg/dL [facility] TOTAL PROTEIN 8.2(H) 6.0 - 8.0 G/dL [facility] ALBUMIN 3.8 3.2 - 5.0 G/dL [facility] BILI, TOTAL 0.2 0.0 - 1.4 mg/dL [facility] SGOT 10 10 - 42 U/L [facility] SGPT 21 10 - 60 U/L [facility] ALK PHOS 88 42 - 121 U/L [facility] Blood specimen (specimen) Blood / Unknown 01/01/2019 3:52 PM EDT 01/01/2019 4:07 PM EDT [facility] - 01/01/2019 7:12 PM EDT [facility] [employer], [place] [address] Business Information Analyst - Tammi Welch MD PT ID [id number] ORD# [id number] Elizabeth Quinones NP LAB - BLOOD DRAW [place] [address], from Last 3 Months or Most Recently Relevant to Health Maintenance Insurance [facility] [place] [address] [facility]) Member Subscriber Plan / Payer (Ef fective 2019-Present) Name:Kaz Alexandre Relation to Subscriber:Self Name:Kaz Alexandre Payer ID:[id number] Group ID:Not on file Type:Indemnity Address: [address] [place], [place] [id number] [place] MEDICAID Care Teams Marketing Representative Relationship Specialty Start Date End Date Jihan Suarez FNP [address] [place] [id number] PCP - General Internal Medicine 06/08/19
[2025-07-13] MEDS: PHENobarb/Hyoscy/Atropine/Scop 10 ML ELIXIR PO (16:40)
[2025-07-13] MEDS: Magnesium Hydrox/Alum Hydrox 30 ML ORAL.SUSP PO (16:40)
[2025-07-13 18:08] LABS: Appearance Urine Clear; Glucose Urine UA Negative (Negative); PH 6.5 (5.0-9.0); Specific Gravity - Urine 1.015 (1.005-1.025); UMIC TRIGGER UACC YES
[2025-07-13 18:13] LABS: UACC Culture Trigger YES
[2025-07-13 18:38] VITALS: BP 108/63; PULSE 78; RESP 16; TEMP -17.7; TEMP 0; O2SAT 99
== END 2025-07-13 18:39 | disposition home or self-care (01) ==
PROVIDERS: Physician Assistant Medical; Registered Nurse Emergency; Emergency Provider Student in an Organized Health Care Education/Training Program; PCP Internal Medicine
DX: K21.9 Gastro-esophageal reflux disease without esophagitis (principal); R10.13 Epigastric pain; R07.9 Chest pain, unspecified
CPT/HCPCS: 36415; 80053; 81001; 83690; 84484; 84702; 85025; 85610; 87086; 93005; 99283; 99284

== ENCOUNTER → 2025-07-13 12:25 | Outpatient (BNV) | payer OTHER, SELFPAY | PROVIDERS: Emergency Provider Student in an Organized Health Care Education/Training Program; PCP Internal Medicine; Visit Provider Internal Medicine Cardiovascular Disease | DX: R07.9 Chest pain, unspecified (principal) | CPT/HCPCS: 93010 ==

== ENCOUNTER 2025-09-11 12:28 | Outpatient (REF) | payer OTHER, SELFPAY | END 2025-09-11 12:29 | LOC: HO.MAMMO 12:28 | PROVIDERS: PCP Internal Medicine; Visit Provider Advanced Practice Midwife | DX: Z12.31 Encounter for screening mammogram for malignant neoplasm of breast (principal) | CPT/HCPCS: 77063; 77067 ==

== ENCOUNTER → 2025-09-11 12:30 | Outpatient (BNV) | payer OTHER, SELFPAY | PROVIDERS: PCP Internal Medicine; Visit Provider Radiology Body Imaging | DX: Z12.31 Encounter for screening mammogram for malignant neoplasm of breast (principal) | CPT/HCPCS: 77063; 77067 ==